=== PATIENT | male | born 1980 | race Hispanic/Latino ===

== ENCOUNTER 2021-01-01 12:48 | Emergency (ER) | payer SELFPAY ==
[2021-01-01 13:02] VITALS: BP 153/120; PULSE 85; RESP 18; TEMP 36.3; O2SAT 98
--- NOTE | 2021-01-01 13:18 | ED.ABDPAIN ---
HPI - Abdominal Pain General Chief Complaint: Abdominal Pain Stated Complaint: Abdominal pain Source: patient and RN notes reviewed Mode of arrival: ambulatory History of Present Illness HPI narrative: This is a 40-year-old male who presented to urgent care today with complaints of abdominal pain after taking a 24 ounce of milk of magnesia. Patient notes that he took the milk of magnesia because he felt like someone was trying to poison him and he was flushing his system he does have a history of schizoaffective and takes Abilify for his condition. Patient notes that he has been taking his medication correctly. Patient is a resident in [place] and is passing through to visit his son in [place]. Patient notes that he has no intentions on harming herself or others denies any suicidal or homicidal ideations. I did call poison control who recommends that the patient be hospitalized for further monitoring it would also probably benefit the patient to be evaluated due to his paranoia. Patient did not take the medication due to constipation, acid reflux, or abdominal pain. He noted that he did have a small bowel movement the patient denies SOB, CP, palpitation, extremity numbness, lightheadedness, dizziness, constipation, diarrhea, chills, or fever. MD elicited complaint: abdominal pain Related Data Home Medications Medication Instructions Recorded Confirmed aripiprazole [Abilify] 10 mg PO HS 01/01/21 01/01/21 Allergies Allergy/AdvReac Type Severity Reaction Status Date / Time No Known Allergies Allergy Verified 01/01/21 13:03 Review of Systems Review of Systems: A 14 organ system Review of Systems was performed and pertinent positives included in the HPI, otherwise remaining ROS is negative. Exam Narrative: GENERAL: This is a well-nourished, well-developed patient, in no apparent distress. HEAD: normocephalic, atraumatic. EYES: PERRL. Sclera clear/white. Vision is grossly intact. EARS: External ears normal, auditory canals clear and without drainage, TMs normal without perforation. Hearing grossly intact. NOSE: External nose normal with no obvious nasal discharge, nares without redness, no rhinorrhea. THROAT: Mucous membranes moist, posterior pharynx clear. NECK: Neck supple, non-tender without lymphadenopathy, masses or thyromegaly. CARDIOVASCULAR: Regular rate and rhythm without murmurs, gallops, or rubs. RESPIRATORY: Clear to auscultation. Breath sounds equal bilaterally. No wheezes, rales, or rhonchi. GASTROINTESTINAL: Generalized abdominal pain bowel sounds are active. No hepato-splenomegaly, or palpable masses. No guarding. SKIN: warm, intact with no suspicious lesions or rash, good texture and turgor. NEURO: awake, alert, and oriented to person, place and time. There were no obvious focal neurologic abnormalities. Steady gait EXTREMITIES: Normal range of motion. No edema. No calf tenderness. Negative Homans sign bilaterally. BACK: Nontender without deformity or crepitance. No flank tenderness. Course Course Emergency Course: Patient was transferred to [facility] accepted by Dr. Cook Vital Signs Vital signs: Vital Signs Temperature 97.3 F L 01/01/21 13:02 Pulse Rate 85 01/01/21 13:02 Respiratory Rate 18 01/01/21 13:02 Blood Pressure 153/120 H 01/01/21 13:02 Pulse Oximetry 98 01/01/21 13:02 Temperature 97.3 F L 01/01/21 13:02 Pulse Rate 85 01/01/21 13:02 Respiratory Rate 18 01/01/21 13:02 Blood Pressure 153/120 H 01/01/21 13:02 Pulse Oximetry 98 01/01/21 13:02 MDM - Abdominal Pain Differential Diagnosis Differential diagnosis: Likely abdominal pain and other (Overdose, psychotic episode) Discharge Plan Discharge Prescriptions: No Action aripiprazole [Abilify] 10 mg Tablet 10 mg PO HS RF: 0
--- NOTE | 2021-01-01 15:05 | PC.NURSE ---
Called son, Ken Thompson at [phone], advised him father transferred to [facility] and gave him phone number, son stated 'he is not in his right mind' and was not aware he was coming to [place] to visit him.
== END 2021-01-01 13:45 | disposition short-term general hospital (02) ==
PROVIDERS: Emergency Provider Nurse Practitioner
DX: T65.91XA Toxic effect of unspecified substance, accidental (unintentional), initial encounter (principal); F20.9 Schizophrenia, unspecified
CPT/HCPCS: 99205; G0463